=== PATIENT | female | born 1995 ===

== ENCOUNTER 2020-07-31 22:23 | Emergency (ER) | payer SELFPAY ==
--- NOTE | 2020-07-31 22:56 | Event Note ---
ED Screening Note Date of service: 07/31/20 Time: 22:56 ED Screening Note: Patient complains of sudden onset of lower abdominal pain radiating through to her back x today Patient appears very uncomfortable This initial assessment/diagnostic orders/clinical plan/treatment(s) is/are subject to change based on patients health status, clinical progression and re- assessment by fellow clinical providers in the ED. Further treatment and workup at subsequent clinical providers discretion. Patient/guardian urged not to elope from the ED as their condition may be serious if not clinically assessed and managed. Initial orders include: Labs
[2020-07-31 23:10] LABS: Basophils # (Auto) 0.1 K/mm3 (0.0-0.1); Basophils % (Auto) 0.7 % (0.0-1.8); Eosinophils # (Auto) 0.1 K/mm3 (0.0-0.4); Eosinophils % (Auto) 1.5 % (0.0-4.3); Hemoglobin 14.2 gm/dl (10.1-14.3); Mean Corpuscular HGB Conc 35 % (30-34); Mean Corpuscular Volume 91 fl (79-97); Monocytes # (Auto) 0.5 K/mm3 (0.0-0.8); Monocytes % (Auto) 5.9 % (0.0-7.3); Platelet Count 186 K/mm3 (140-440); Red Blood Count 4.38 M/mm3 (3.65-5.03); Red Cell Distribution Width 12.8 % (13.2-15.2)
[2020-07-31] MEDS ORDERED: ONDANSETRON 4 MG/2 ML INJ IV ONE (23:17)
[2020-07-31] MEDS ORDERED: MORPHINE 4 MG/1 ML INJ IV ONE (23:17)
[2020-07-31 23:33] LABS: Alanine Aminotransferase 22 units/L (7-56); Albumin 4.8 g/dL (3.9-5); Blood Urea Nitrogen 11 mg/dL (7-17); Calcium 9.4 mg/dL (8.4-10.2); Hemolysis Index 17
[2020-07-31 23:39] LABS: BUN/Creatinine Ratio 18
[2020-08-01] MEDS ORDERED: MORPHINE 4 MG/1 ML INJ IV ONE (00:26)
[2020-08-01] MEDS ORDERED: KETOROLAC 30 MG/1 ML INJ IV ONE (00:26)
--- NOTE | 2020-08-01 01:11 | Emergency Department Report ---
ED Abdominal Pain HPI - General Chief Complaint: Abdominal Pain Stated Complaint: ABDOMINAL PAIN PUI?: No Time Seen by Provider: 07/31/20 22:54 Source: patient Mode of arrival: Ambulatory Limitations: No Limitations - History of Present Illness Initial Comments: Chief complaint: I hurt so bad. HPI: This is a 24-year-old female with history of anxiety presents with severe suprapubic pain rating to the left flank. Gradual onset of pain which began today. 1010 sharp. She has had a white-brown vaginal discharge over the past week. She has had 3 home negative test. She had one positive home urine test. She did miss her period. She denies vomiting. She denies fever. Denies diarrhea. Pain is extremely severe with movement especially when sitting on her bottom Patient has had unprotected sex. She is single. She denies history of previous social transmitted diseases. She has had 2 vaginal deliveries. MD Complaint: abdominal pain -: Gradual, This afternoon Location: suprapubic Radiation: L flank Severity: severe Severity scale (0 -10): 10 Quality: sharp Consistency: constant Worsens With: other (Sitting upright on her backside) - Related Data Previous Rx's Medication Instructions Recorded Last Taken Type Doxycycline Hyclate [Doxycycline 100 mg PO Q12HR 14 Days #28 tab 08/01/20 Unknown Rx Hyclate TAB] Ibuprofen [Motrin 800 MG tab] 800 mg PO Q8HR PRN #20 tablet 08/01/20 Unknown Rx oxyCODONE /ACETAMINOPHEN [Percocet 1 tab PO Q6HR PRN #20 tablet 08/01/20 Unknown Rx 5/325] ED Review of Systems ROS: Stated complaint: ABDOMINAL PAIN Other details as noted in HPI Comment: All other systems reviewed and negative Constitutional: denies: fever, malaise Respiratory: denies: cough, shortness of breath Gastrointestinal: denies: abdominal pain, nausea, vomiting ED Past Medical Hx - Past Medical History Previous Medical History?: Yes Hx Asthma: Yes Additional medical history: Anxiety - Surgical History Past Surgical History?: Yes Additional Surgical History: tonsillectomy - Social History Smoking Status: Never Smoker Substance Use Type: None - Medications Home Medications: Home Medications Medication Instructions Recorded Confirmed Last Taken Type Doxycycline Hyclate [Doxycycline 100 mg PO Q12HR 14 Days #28 tab 08/01/20 Unknown Rx Hyclate TAB] Ibuprofen [Motrin 800 MG tab] 800 mg PO Q8HR PRN #20 tablet 08/01/20 Unknown Rx oxyCODONE /ACETAMINOPHEN [Percocet 1 tab PO Q6HR PRN #20 tablet 08/01/20 Unknown Rx 5/325] ED Physical Exam - General Limitations: No Limitations General appearance: alert, other (Tearful in severe pain lying quite still on her right side) - Head Head exam: Present: atraumatic, normocephalic - Eye Eye exam: Present: normal appearance - ENT ENT exam: Present: mucous membranes moist - Neck Neck exam: Present: normal inspection, full ROM - Respiratory Respiratory exam: Present: normal lung sounds bilaterally. Absent: respiratory distress, wheezes, rales, rhonchi - Cardiovascular Cardiovascular Exam: Present: regular rate, normal rhythm, normal heart sounds. Absent: systolic murmur, diastolic murmur, rubs, gallop - GI/Abdominal GI/Abdominal exam: Present: soft, normal bowel sounds. Absent: distended, tenderness, guarding, rebound - External exam: Present: erythema (Erythematous labia) Speculum exam: Present: vaginal discharge, cervical discharge (Thick mucopurule nt discharge from cervix throughout vagina) Bi-manual exam: Present: cervical motion tendernes, adnexal tenderness, adnexal mass, uterine tenderness, other (Severe extreme pelvic tenderness with chandelier sign) - Extremities Exam Extremities exam: Present: normal inspection - Back Exam Back exam: Present: tenderness, CVA tenderness (L). Absent: full ROM, muscle spasm, paraspinal tenderness - Neurological Exam Neurological exam: Present: alert, oriented X3 - Psychiatric Psychiatric exam: Present: normal affect, normal mood - Skin Skin exam: Present: warm, dry, intact, normal color. Absent: rash ED Course Vital Signs 07/31/20 08/01/20 08/01/20 22:46 00:00 01:00 Temperature 98.1 F Pulse Rate 95 H 81 88 Respiratory 16 20 15 Rate Blood Pressure 132/76 Blood Pressure 130/56 121/76 [Left] O2 Sat by Pulse 98 96 100 Oximetry ED Medical Decision Making - Lab Data Result diagrams: 07/31/20 23:00 07/31/20 23:00 Laboratory Results - last 24 hr 07/31/20 07/31/20 07/31/20 23:00 23:00 23:00 WBC 8.7 RBC 4.38 Hgb 14.2 Hct 40.0 MCV 91 MCH 32 MCHC 35 H RDW 12.8 L Plt Count 186 Lymph % (Auto) 46.0 H Loving % (Auto) 5.9 Eos % (Auto) 1.5 Baso % (Auto) 0.7 Lymph # (Auto) 4.0 Loving # (Auto) 0.5 Eos # (Auto) 0.1 Baso # (Auto) 0.1 Seg Neutrophils % 45.9 Seg Neutrophils # 4.0 Sodium 139 Potassium 4.2 Chloride 101.9 Carbon Dioxide 27 Anion Gap 14 BUN 11 Creatinine 0.6 Estimated GFR > 60 BUN/Creatinine Ratio 18 Glucose 99 Calcium 9.4 Total Bilirubin 0.50 AST 22 ALT 22 Alkaline Phosphatase 102 Total Protein 7.5 Albumin 4.8 Albumin/Globulin Ratio 1.8 Lipase 24 HCG, Qual Negative - Radiology Data Radiology results: report reviewed CT ABDOMEN AND PELVIS WITH CONTRAST INDICATION: Severe pelvic pain radiating to the back. TECHNIQUE: Axial CT images were obtained through the abdomen and pelvis after 100 cc Omni [address] scans at this location are performed using CT dose reduction for [place] by means of automated exposure control. COMPARISON: None available. FINDINGS: LOWER CHEST: No significant abnormality. LIVER: No significant abnormality. GALLBLADDER: No significant abnormality. BILE DUCTS: No significant abnormality. PANCREAS: No significant abnormality. SPLEEN: No significant abnormality. ADRENALS: No significant abnormality. RIGHT KIDNEY and URETER: No significant abnormality. LEFT KIDNEY and URETER: No significant abnormality. STOMACH and SMALL BOWEL: No significant abnormality. COLON: No significant abnormality. APPENDIX: No significant abnormality. PERITONEUM: No free fluid. No free air. No fluid collection. LYMPH NODES: No significant adenopathy. AORTA and ARTERIES: No significant abnormality. IVC and VEINS: No significant abnormality. URINARY BLADDER: No significant abnormality. REPRODUCTIVE ORGANS: No significant abnormality. ADDITIONAL FINDINGS: None. SKELETAL SYSTEM: No significant abnormality. IMPRESSION: 1. No significant abnormality. - Medical Decision Making Clinical impression: Pelvic inflammatory disease, patient had severe pelvic tenderness with mucopurulent discharge in the vagina. Patient treated with ceftriaxone and p.o. doxycycline. Prescription provided for Percocet ibuprofen doxycycline for 14 days. Patient referred to orthotic finish grinding technician. Patient concern for irregular menses. CT abdomen pelvis with contrast: No significant abnormality I reviewed labs CBC chemistry within normal limits. Urine test negative Critical care attestation.: If time is entered above; I have spent that time in minutes in the direct care of this critically ill patient, excluding procedure time. ED Disposition Clinical Impression: Pelvic inflammatory disease Disposition: TO HOME OR SELFCARE Is pt being admited?: No Does the pt Need Aspirin: No Condition: Stable Instructions: Pelvic Inflammatory Disease, Abdominal Pain (ED) Prescriptions: Doxycycline Hyclate [Doxycycline Hyclate TAB] 100 mg PO Q12HR 14 Days #28 tab Ibuprofen [Motrin 800 MG tab] 800 mg PO Q8HR PRN #20 tablet PRN Reason: Pain , Severe (7-10) oxyCODONE /ACETAMINOPHEN [Percocet 5/325] 1 tab PO Q6HR PRN #20 tablet PRN Reason: Pain Referrals: MARCIA COLLINS MD [Staff Physician] - 3-5 Days Forms: Work/School Release Form(ED)
--- NOTE | 2020-08-01 01:16 | Cat Scan Report ---
CT ABDOMEN AND PELVIS WITH CONTRAST INDICATION: Severe pelvic pain radiating to the back. TECHNIQUE: Axial CT images were obtained through the abdomen and pelvis after 100 cc Omni [address] scans at this location are performed using CT dose reduction for [place] by means of automated expos ure control. COMPARISON: None available. FINDINGS: LOWER CHEST: No significant abnormality. LIVER: No significant abnormality. GALLBLADDER: No significant abnormality. BILE DUCTS: No significant abnormality. PANCREAS: No significant abnormality. SPLEEN: No significant abnormality. ADRENALS: No significant abnormality. RIGHT KIDNEY and URETER: No significant abnormality. LEFT KIDNEY and URETER: No significant abnormality. STOMACH and SMALL BOWEL: No significant abnormality. COLON: No significant abnormality. APPENDIX: No significant abnormality. PERITONEUM: No free fluid. No free air. No fluid collection. LYMPH NODES: No significant adenopathy. AORTA and ARTERIES: No significant abnormality. IVC and VEINS: No significant abnormality. URINARY BLADDER: No significant abnormality. REPRODUCTIVE ORGANS: No significant abnormality. ADDITIONAL FINDINGS: None. SKELETAL SYSTEM: No significant abnormality. IMPRESSION: 1. No significant abnormality. Signer Name: Aram Brown MD Signed: 08/01/2020 1:11 AM Workstation Name: [id number]
[2020-08-01] MEDS ORDERED: oxyCODONE /ACETAMINOPHEN 5-325MG TAB PO ONE (02:02)
[2020-08-01] MEDS ORDERED: DOXYCYCLINE 100 MG CAP PO ONE (02:02)
[2020-08-01] MEDS ORDERED: IBUPROFEN 800 MG TAB PO ONE (02:02)
[2020-08-01] MEDS ORDERED: LIDOCAINE-MPF (1%) 10 MG/1 ML VIAL 5 ML INFILTRATI ONE (02:02)
[2020-08-01] MEDS ORDERED: ONDANSETRON 4 MG/2 ML INJ IV ONE (02:02)
--- NOTE | 2020-08-01 03:18 | Ultrasound Report ---
ULTRASOUND PELVIS INDICATION: Severe pelvic pain. TECHNIQUE: Transabdominal. Duplex Color Doppler used: Yes. COMPARISON: None available FINDINGS: Uterus: Present. Size: 10.7 x 3.9 x 5.1 cm. Endometrial complex: Normal measuring 5 mm. Mass lesions: None. Additional findings: None. Right Ovary -- Normal. Blood flow: Normal. Cyst or mass: None. Left Ovary-- Normal. Blood flow: Normal. Cyst or mass: None. Urinary Bladder: Normal. Free Fluid: None. Additional Findings: None. IMPRESSION: 1. No acute sonographic abnormality of the pelvis. Signer Name: Aram Brown MD Signed: 08/01/2020 3:13 AM Workstation Name: .[id number]
[2020-08-01 03:41] VITALS: BP 117/69
== END 2020-08-01 03:40 | disposition home or self-care (01) ==
LOC: ED 22:23
DX: N73.9 Female pelvic inflammatory disease, unspecified (principal); J45.909 Unspecified asthma, uncomplicated; F41.9 Anxiety disorder, unspecified; Z79.899 Other long term (current) drug therapy; Z91.018 Allergy to other foods; Z98.890 Other specified postprocedural states; Z90.49 Acquired absence of other specified parts of digestive tract
CPT/HCPCS: 36415; 74177; 76856; 80053; 83690; 84703; 85025; 96372; 96374; 96375; 96376; 99284; J0696; J1885; J2270; J2405; Q9967